=== PATIENT | female | born 1955 | race Caucasian/White ===

== ENCOUNTER 2018-02-19 15:26 | Outpatient (REF) | payer BC, SELFPAY ==
--- NOTE | 2018-02-19 14:05 | VUL_PTH ---
PATIENT: SHIRLENE MAC LOC: [facility] U#:[id number] AGE/SX: 62/F ROOM: RE02/19/[address]: Sheyla Sharp MD : [id number] BED: DIS: 02/19/2018 SPEC #: [id number] RECD: 02/19/18 17:55 STATUS: [place]E [place] #: [id number] LARISSA: 02/19/18 14:[address]: Sheyla Sharp DEPT: Surgical Specimen RECD BY: Berkley Myles Tissues: 1 - VULVA BIOPSY Procedures: GROSS AND MICRO LEVEL 4 SPECIAL STAIN 1 Comments: [id number]
== END 2018-02-19 15:46 ==
LOC: LBN 15:26
PROVIDERS: Visit Provider Obstetrics & Gynecology
DX: N90.4 Leukoplakia of vulva (principal)
CPT/HCPCS: 88305; 88312